=== PATIENT | male | born 1955 | race Caucasian/White ===

== ENCOUNTER 2017-01-01 11:56 | Day surgery (SDC) | payer MEDICAID ==
[2016-12-30 13:43] LABS: BLOOD UREA NITROGEN 10 mg/dL (7-18)
[2016-12-30 13:49] LABS: ASPARTATE AMINO TRANSFERASE 9 U/L (15-37)
[~2017-01-01] VITALS: Ht 182.9 cm; Wt 85.0 kg
[~2017-01-01 11:56] MED LIST: ASPI-496 PO; LISI-170 PO; MELA3TAB PO; METF10002 PO; NICO1PAT5 TD
[2017-01-01] MEDS ORDERED: LACTATED RINGERS 1,000 ML IV SCH (13:24)
[2017-01-01 13:29] VITALS: BP 162/76
== END 2017-01-01 19:10 | disposition home or self-care (01) ==
LOC: OUT 11:56
PROVIDERS: ATTEND Internal Medicine
DX: C34.32 Malignant neoplasm of lower lobe, left bronchus or lung (principal); I10 Essential (primary) hypertension; E11.9 Type 2 diabetes mellitus without complications; Z87.891 Personal history of nicotine dependence; F12.10 Cannabis abuse, uncomplicated; Z86.73 Personal history of transient ischemic attack (TIA), and cerebral infarction without residual deficits
CPT/HCPCS: 32405; 36415; 71010; 77012; 80053; 82962; 85025; 88305; 88341; 88342; 93005; J2250; J3010; J7120; 32400; 99156; 99157; G0461; J2310